=== PATIENT | male | born 1970 | race Caucasian/White ===

== ENCOUNTER 2018-06-21 14:00 | Emergency (ER) | payer OTHER ==
--- NOTE | 2018-06-21 14:45 | EDM.PDOC ---
ED HPI GENERAL MEDICAL PROBLEM - General Chief Complaint: Upper Extremity Injury/Pain Time Seen by Provider: 06/21/18 14:32 Source of Information: Reports: Patient History Limitations: Reports: No Limitations - History of Present Illness INITIAL COMMENTS - FREE TEXT/NARRATIVE: Patient presents with right elbow and right shoulder pain after falling/ tripping at work. He landed on his right elbow on a sheet metal surface. There is a small cut on the posterior elbow that is bleeding. He denies any LOC , neck pain, vision change, vomiting and says he didn't hit his head at all. He thinks last tetanus was "couple" years ago at [facility] which we will attempt to verify. He denies any heart, lung, kidney problems or any chronic medical problems. Right Elbow Pain Score (Numeric/FACES): 6 - Related Data Allergies Allergy/AdvReac Type Severity Reaction Status Date / Time No Known Allergies Allergy Verified 06/21/18 14:08 Past Medical History - Past Health History Medical/Surgical History: Denies Medical/Surgical History - Past Surgical History GI Surgical History: Reports: Appendectomy Social & Family History - Tobacco Use Smoking Status *Q: Never Smoker - Recreational Drug Use Recreational Drug Use: No Review of Systems - Review of Systems Review Of Systems: See Below Constitutional: Denies: Chills, Fever, Weakness Eyes: Denies: Vision Change Ears: Denies: Dizziness, Pain Nose: Reports: No Symptoms Mouth/Throat: Reports: No Symptoms Respiratory: Reports: No Symptoms. Denies: Shortness of Breath Cardiovascular: Reports: No Symptoms. Denies: Chest Pain, Lightheadedness, Syncope GI/Abdominal: Reports: No Symptoms. Denies: Nausea, Vomiting Genitourinary: Reports: No Symptoms Musculoskeletal: Reports: No Symptoms, Shoulder Pain. Denies: Neck Pain, Back Pain, Hand Pain Skin: Reports: Wound (right elbow). Denies: Cyanosis, Jaundice, Mottled, Pallor , Diaphoresis Neurological: Reports: No Symptoms. Denies: Confusion, Dizziness, Seizure, Syncope, Trouble Speaking, Difficulty Walking Psychiatric: Denies: Confusion ED EXAM, GENERAL - Physical Exam Exam: See Below Exam Limited By: No Limitations General Appearance: Alert, WD/WN, No Apparent Distress Eye Exam: Bilateral Eye: EOMI, Normal Inspection, PERRL Ears: Normal External Exam, Hearing Grossly Normal Nose: Normal Inspection, No Blood Throat/Mouth: Normal Inspection, Normal Lips, Normal Voice, No Airway Compromise Head: Atraumatic, Normocephalic Neck: Normal Inspection, Supple, Non-Tender, Full Range of Motion. No: Tender Lateral, Tender Midline Respiratory/Chest: No Respiratory Distress, Lungs Clear, Normal Breath Sounds, No Accessory Muscle Use Cardiovascular: Regular Rate, Rhythm, No Murmur GI/Abdominal: No Distention Back Exam: Normal Inspection, Full Range of Motion Extremities: Normal Range of Motion, Normal Capillary Refill, Other (There is a 1 cm laceration of right posterior elbow along with significant hematoma. ROM of both elbow and shoulder are normal with minimal pain. No pain to palpation.) Neurological: Alert, Oriented, Normal Cognition, No Motor/Sensory Deficits Psychiatric: Normal Affect, Normal Mood Skin Exam: Warm, Dry, Normal Color, No Rash ED TRAUMA EXTREMITY PROCEDURES - Laceration/Wound Repair Right Posterior Elbow Lac/Wound Length In cm: 1.5 Appearance: Subcutaneous, Linear Distal NVT: Neuro & Vascular Intact, No Tendon Injury Anesthetic Type: Local Local Anesthesia - Lidocaine (Xylocaine): 2% with EPI Local Anesthetic Volume: 3cc Skin Prep: Chlorhexidine (Hibiciens), Saline Saline Irrigation (cc's): 60 Exploration/Debridement/Repair: Wound Explored Closed With: Sutures Suture Size: 4-0 Suture Type: Nylon, Interrupted, Simple Drain Placement: No Sterile Dressing Applied: Nurse Tetanus Status Addressed: Yes Complications: No Course - Vital Signs Last Recorded V/S: Last Vital Signs Temp 97.6 F 06/21/18 14:09 Pulse 82 06/21/18 14:09 Resp 16 06/21/18 14:09 BP 154/80 H 06/21/18 14:09 Pulse Ox 95 06/21/18 14:09 - Orders/Labs/Meds Orders: Active Orders 24 hr Category Date Time Status Elbow Min 3V Rt [CR] Stat Exams 06/21/18 14:40 Ordered Shoulder Comp Rt [CR] Stat Exams 06/21/18 14:40 Ordered - Re-Assessments/Exams Free Text/Narrative Re-Assessment/Exam: 06/21/18 14:47 Last tetanus was confirmed in 2014. 06/21/18 15:53 Xray shows no evidence of fracture or acute bony pathology. Xray report confirms. Discussed findings and treatment plan with patient. The laceration was repaired as described. Patient discharged to home in stable condition. Departure - Departure Time of Disposition: 15:48 Disposition: Home, Self-Care 01 Condition: Good Clinical Impression: Laceration of elbow without complication Qualifiers: Encounter type: initial encounter Laterality: right Qualified Code(s): S51.011A - Laceration without foreign body of right elbow, initial encounter Contusion of elbow, right Qualifiers: Encounter type: initial encounter Qualified Code(s): S50.01XA - Contusion of right elbow, initial encounter - Discharge Information Instructions: Laceration Care, Adult Referrals: PCP,None [Primary Care Provider] - Additional Instructions: 1. Keep wound clean and dry and keep covered while at work. You should change the bandages daily. 2. Watch for signs of infection and get rechecked MIREYA if present. 3. Follow up with Primary Care in ten days for suture removal and to finalize the work comp restrictions and paperwork. - My Orders Last 24 Hours: My Active Orders 06/21/18 14:40 Elbow Min 3V Rt [CR] Stat Shoulder Comp Rt [CR] Stat - Assessment/Plan Last 24 Hours: My Active Orders 06/21/18 14:40 Elbow Min 3V Rt [CR] Stat Shoulder Comp Rt [CR] Stat
== END 2018-06-21 15:55 | disposition home or self-care (01) ==
LOC: KA.ED 14:00
DX: S51.011A Laceration without foreign body of right elbow, initial encounter (principal); W01.198A Fall on same level from slipping, tripping and stumbling with subsequent striking against other object, initial encounter; Y99.0 Civilian activity done for income or pay
CPT/HCPCS: 12001; 73030-RT; 73080-RT; 99283

== ENCOUNTER 2022-02-15 15:14 | Emergency (ER) | payer BC, OTHER ==
[2022-02-15] MEDS: Acetaminophen 500 MG Tab PO ONE (15:51)
[2022-02-15] MEDS: Sodium Chloride 0.9% 1,000 ML ONE (15:57)
[2022-02-15] MEDS: Sodium Chloride 0.9% 1,000 ML IV ONE (15:58)
[2022-02-15] MEDS: Ondansetron 4 MG/2 ML SDV IVPUSH ONE (16:01)
[2022-02-15] MEDS: Sodium Chloride 0.9% 10 ML Syringe FLUSH PRN (16:02)
[2022-02-15] MEDS: HYDROmorphone 1 MG/ML Syringe IVPUSH ONE (16:05)
[2022-02-15 16:33] LABS: ANION GAP 13.5 mmol/L (5-15); CHLORIDE,CL 100 mmol/L (98-107); SODIUM,NA 135 mmol/L (136-145)
[2022-02-15] MEDS: cefTRIAXone 2 GM Vial IVPUSH SCH (17:01)
== END 2022-02-15 19:20 | disposition home or self-care (01) ==
LOC: KA.ED 15:14
DX: L03.115 Cellulitis of right lower limb (principal); R50.81 Fever presenting with conditions classified elsewhere; D72.828 Other elevated white blood cell count
CPT/HCPCS: 36415; 71046; 73590-RT; 80053; 81001; 83605; 85025; 86140; 87040; 96365; 96375; 99283-25; 99284; A9270-GY; J0696; J1170; J2405; J3370; J3490; J7030; J7050

== ENCOUNTER 2025-08-05 22:25 | Emergency (ER) | payer BC ==
[2025-08-05 22:39] LABS: BASOPHILS ABSOLUTE AUTO 0.02 10^3/uL (0.00-0.10); BASOPHILS PERCENT AUTO 0.1 % (0.0-1.0); EOSINOPHILS ABSOLUTE AUTO 0.02 10^3/uL (0.10-0.30); EOSINOPHILS PERCENT AUTO 0.1 % (1.0-3.0); IMMATURE GRAN ABSOLUTE AUTO 0.11 10^3/uL (0.00-0.04); IMMATURE GRAN PERCENT AUTO 0.5 % (0.0-0.4); LYMPHOCYTES ABSOLUTE AUTO 1.20 10^3/uL (1.00-4.00); LYMPHOCYTES PERCENT AUTO 5.1 % (20.0-40.0); MEAN PLATELET VOLUME 9.9 fL (7.4-10.4); MONOCYTES ABSOLUTE AUTO 1.75 10^3/uL (0.10-0.80); MONOCYTES PERCENT AUTO 7.5 % (2.0-8.0); NEUTROPHILS ABSOLUTE AUTO 20.29 10^3/uL (2.50-7.00); NEUTROPHILS PERCENT AUTO 86.7 % (50.0-70.0); PLATELET COUNT,PLT 266 10^3/uL (150-400); RED BLOOD CELL COUNT 4.87 10^6/uL (4.50-6.00); RED CELL DISTRIBUTION WIDTH 13.1 % (11.5-14.5); WHITE BLOOD CELL COUNT,WBC 23.39 10^3/uL (5.00-10.00)
[2025-08-05 22:55] LABS: ALANINE AMINOTRANSFERASE,ALT 52.0 U/L (14-63); ASPARTATE AMNIOTRANSFERASE,AST 39.0 U/L (15-37); BILIRUBIN TOTAL 1.9 mg/dL (0.2-1.0); BLOOD UREA NITROGEN,BUN 13.0 mg/dL (7-18); CARBON DIOXIDE,CO2 23.1 mmol/L (21.0-32.0); CHLORIDE,CL 100.0 mmol/L (98-107); CREATININE 0.93 mg/dL (0.51-1.17); EST CRCL DRUG DOSING (CG) 113.1 mL/min; ESTIMATED GFR 97.0 mL/min (>=60); GLUCOSE RANDOM 119.0 mg/dL (70-140); POTASSIUM,K 3.4 mmol/L (3.5-5.1); PROTEIN TOTAL,TP 7.3 g/dL (6.4-8.2); SODIUM,NA 136.0 mmol/L (136-145)
[2025-08-05 22:58] LABS: LACTIC ACID 1.0 mmol/L (0.4-2.0)
[2025-08-05] MEDS: VANCOmycin 1.5 GM/300 ML 1.5 GM in Premix Bag 1 BAG IV ONE (23:13)
[2025-08-06] MEDS: Iopamidol 755 Mg/ML 100 ML Bottle IV ONE (00:05)
== END 2025-08-06 01:15 | disposition home or self-care (01) ==
LOC: KA.ED 22:25
DX: L03.115 Cellulitis of right lower limb (principal); D72.829 Elevated white blood cell count, unspecified
CPT/HCPCS: 71046; 71275; 80053; 83605; 85025; 85379; 96365; 96366; 96375; 99211; 99284; 99285-25; A9270-GY; J0696; J3375; J7030; Q9967